=== PATIENT | male | born 1990 | race Caucasian/White ===

== ENCOUNTER 2019-11-15 12:08 | Inpatient (IN) ==
[2019-11-15] MEDS ORDERED: LACTATED RINGERS 1,000 ML IV STA (12:13)
[2019-11-15] MEDS ORDERED: DIPH/TET/ACEL PERT BOOSTER VACCINE 0.5 ML VIAL IM ONE (12:13)
[2019-11-15] MEDS ORDERED: HYDROmorphone 2 MG/1 ML VIAL IV STA (12:15)
[2019-11-15] MEDS ORDERED: ONDANSETRON 4 MG/2 ML VIAL IV STA (12:15)
[2019-11-15] MEDS ORDERED: GENTAMICIN INJ 140 MG in SODIUM CHLORIDE 0.9% 100 ML IV STA (12:19)
[2019-11-15 12:52] LABS: ABG Base Excess 0.6 MMOL/L (-2.5-2.5); ABG HCO3 24.9 MMOL/L (20-26); ABG Oxygen Saturation 98.5 % (95-100); ABG PCO2 38.9 MM HG (35-48); ABG PH 7.415 (7.35-7.45); ABG TCO2 21.2 MMOL/L (23-27)
[2019-11-15 12:53] LABS: Basophils # 0.1 10*3/uL (0.0-0.2); Basophils % 0.4 % (0.0-0.8); Eosinophils % 0.3 % (0.00-10.9); Hematocrit 45.1 VOL% (42.0-52.0); Hemoglobin 15.1 GM/DL (14.0-18.0); Immature Granulocytes % 0.4 %; Immature Granulocytes Absolute 0.05 #; Lymphocytes # 1.5 10*3/uL (1.4-4.0); Lymphocytes % 11.5 % (21.2-54.2); Mean Corpuscular HGB Conc 33.5 GM/DL (32-36); Mean Corpuscular Volume 92.6 FL (87-102); Mean Platelet Volume 8.3 FL (9.6-12.0); Monocytes % 6.6 % (1.7-12.7); Neutrophils % 80.8 % (38.7-73.9); Platelet Count 268 T/CUMM (130-400); Red Blood Count 4.87 MC/CUMM (3.8-5.5); Red Cell Distribution Width 12.5 % (9.3-17.3); White Blood Count 12.7 T/CUMM (4-12)
[2019-11-15 13:15] LABS: PT Patient Result 10.7 SECS (9.8-11.9); Partial Thromboplastin Time 22.7 SECS (23.9-33.8)
[2019-11-15 13:16] LABS: Alanine Aminotransferase 39 U/L (16-61); Albumin 3.8 G/DL (3.4-5.0); Alkaline Phosphatase 66 U/L (45-117); Aspartate Amino Transferase 42 U/L (0-37); Bilirubin,Total < 0.39 MG/DL (0.2-1.0); Blood Urea Nitrogen 9 MG/DL (7-18); Calcium 8.7 MG/DL (8.5-10.1); Estimated Glom Filtration Rate 110 ML/MIN; Glucose 94 MG/DL (74-106); Osmolality,Calculated 273.7 MOS/KG (273-304)
[2019-11-15] MEDS ORDERED: GENTAMICIN 80 MG/2 ML VIAL ONE ×2 (13:19→13:21)
[2019-11-15 14:30] LABS: Apearance,Urine CLEAR (Clear); Bilirubin,Urine Negative (Negative); Blood, Urine Negative (Negative); Glucose,Urine (UA) Negative (Negative); Hyaline Casts,Urine 3 /LPF (0-3); Ketones,Urine Negative (Negative); Mucus,Urine Occasional /LPF (Occasional); Nitrite,Urine Negative (Negative); Protein,Urine Negative; RBC,Urine 3 /HPF (0-4); Squamous Epithelial Cell,Urine Occasional /HPF (0-10); Urine Color Yellow (Yellow); Urine Specific Gravity 1.014 (1.001-1.035); Urine Urobilinogen < 2.0 EU/DL (0.2-1.0); WBC,Urine 2 /HPF (0-6)
[2019-11-15] MEDS ORDERED: ONDANSETRON 4 MG/2 ML VIAL IV PRN (14:44)
[2019-11-15] MEDS ORDERED: diphenhydrAMINE CAP 25 MG CAPSULE PO PRN (14:44)
[2019-11-15] MEDS ORDERED: LACTULOSE 20 GM/30 ML UDCUP PO PRN (14:44)
[2019-11-15] MEDS ORDERED: BISACODYL 10 MG SUPP RECTAL PRN (14:44)
[2019-11-15] MEDS ORDERED: MORPHINE 4 MG/1 ML VIAL IV PRN (14:44)
[2019-11-15] MEDS ORDERED: PROMETHAZINE 25 MG/1 ML VIAL IM PRN (14:44)
[2019-11-15] MEDS ORDERED: MAGNESIUM HYDROXIDE SUSP 30 ML UDCUP PO PRN (14:44)
[2019-11-15] MEDS ORDERED: LIDOCAINE 2% 5 ML VIAL ONE (14:52)
[2019-11-15] MEDS ORDERED: SUCCINYLCHOLINE 200 MG/10 ML VIAL ONE (14:52)
[2019-11-15] MEDS ORDERED: ROCURONIUM 100 MG/10 ML VIAL IV ONE (14:52)
[2019-11-15] MEDS ORDERED: propofoL 200 MG/20 ML VIAL IV ONE (14:52)
[2019-11-15] MEDS ORDERED: MIDAZOLAM 2 MG/2 ML VIAL ONE (14:52)
[2019-11-15] MEDS ORDERED: DEXAMETHASONE 4 MG/1 ML VIAL ONE (14:52)
[2019-11-15] MEDS ORDERED: SEVOFLURANE 1 UNIT/15 MINUTE INH ONE (14:52)
[2019-11-15 15:03] LABS: Barbiturates Screen,Urine Negative (Negative); Benzodiazepines Screen,Urine Negative (Negative); Cannabinoid Screen,Urine Positive (Negative); Opiate Screen,Urine Negative (Negative); Phencyclidine Screen,Urine Negative (Negative)
[2019-11-15] MEDS ORDERED: MEPERIDINE 25 MG/1 ML VIAL ONE (15:04)
[2019-11-15] MEDS ORDERED: MEPERIDINE 25 MG/1 ML VIAL IV PRN (15:05)
[2019-11-15] MEDS ORDERED: KETOROLAC 15 MG/1 ML VIAL IV PRN (16:30)
[2019-11-15] MEDS ORDERED: KETOROLAC 30 MG/1 ML VIAL IV ONE (16:30)
[2019-11-15] MEDS: LACTATED RINGERS 1,000 ML IV SCH (17:12)
[2019-11-15] MEDS ORDERED: fentaNYL 100 MCG/2 ML VIAL ONE (18:40)
[2019-11-15] MEDS: ceFAZolin 1,000 MG in SYRINGE 1 EACH IV SCH (20:09)
[2019-11-15] MEDS: KETOROLAC 15 MG/1 ML VIAL IV SCH (23:30)
[2019-11-16] MEDS: ceFAZolin 1,000 MG in SYRINGE 1 EACH IV SCH ×2 (03:35→13:36)
[2019-11-16] MEDS: LACTATED RINGERS 1,000 ML IV SCH ×2 (03:36→12:30)
[2019-11-16] MEDS: KETOROLAC 15 MG/1 ML VIAL IV SCH ×2 (05:17→10:44)
[2019-11-16] MEDS ORDERED: MIDAZOLAM 2 MG/2 ML VIAL ONE (08:06)
[2019-11-16] MEDS ORDERED: ONDANSETRON 4 MG/2 ML VIAL ONE ×2 (08:06→08:12)
[2019-11-16] MEDS ORDERED: fentaNYL 100 MCG/2 ML VIAL ONE (08:06)
[2019-11-16] MEDS ORDERED: propofoL 200 MG/20 ML VIAL IV ONE (08:06)
[2019-11-16] MEDS ORDERED: DEXAMETHASONE 4 MG/1 ML VIAL ONE (08:06)
[2019-11-16] MEDS ORDERED: LIDOCAINE 2% 5 ML VIAL ONE (08:06)
[2019-11-16] MEDS ORDERED: LACTATED RINGERS 1,000 ML IV ONE (08:06)
[2019-11-16] MEDS ORDERED: SEVOFLURANE 1 UNIT/15 MINUTE INH ONE (08:06)
[2019-11-16] MEDS ORDERED: ONDANSETRON 4 MG/2 ML VIAL IV PRN (08:10)
[2019-11-16] MEDS ORDERED: HYDROmorphone 2 MG/1 ML VIAL ONE (08:12)
[2019-11-16] MEDS: HYDROmorphone 2 MG/1 ML VIAL IV PRN ×4 (08:15→08:47)
[2019-11-16 09:08] VITALS: BP 116/74
[2019-11-16] MEDS ORDERED: KETOROLAC 15 MG/1 ML VIAL IV PRN (11:00)
== END 2019-11-16 15:12 | disposition home or self-care (01) | DRG 494 ==
LOC: N.ED 12:08 → N.EDINP 12:08 → N.3E 13:30
PROVIDERS: ADMIT Orthopaedic Surgery; ATTEND Orthopaedic Surgery